=== PATIENT | male | born 1965 ===

== ENCOUNTER 2021-08-26 16:30 | Outpatient (RCR) | payer OTHER, SELFPAY ==
[2021-06-09 14:55] VITALS: BP 158/80; PULSE 84; O2SAT 97
[2021-06-11 17:45] LABS: Glucose Point of Care 143 mg/dl (65-105)
[2021-06-17 17:36] LABS: Glucose Point of Care 173 mg/dl (65-105)
[2021-06-18 17:37] LABS: Glucose Point of Care 226 mg/dl (65-105)
--- NOTE | 2021-07-16 10:23 | PCCPR ---
Absent due to in family Jarrod had made arrangements to attend and alternate time however did not show. Called and spoke with Jarrod states his cousin was gravely ill and ended up passing away last night.
--- NOTE | 2021-08-06 16:57 | PCCPR ---
Patient did not show up for his 18th session today nor did he call to cancel.
== END 2021-08-27 17:36 | disposition home or self-care (01) ==
LOC: ANHCPREHAB 16:30
PROVIDERS: PCP Family Medicine
DX: Z95.5 Presence of coronary angioplasty implant and graft (principal)
CPT/HCPCS: 93798